=== PATIENT | male | born 1980 | race African-American/Black ===

== ENCOUNTER 2024-07-27 08:36 | Outpatient (CLI) | payer OTHER | END 2024-07-27 08:39 | disposition home or self-care (01) | LOC: SONOGRAMA 08:36 | DX: M25.512 Pain in left shoulder (principal) ==

== ENCOUNTER 2025-04-13 06:45 | Outpatient (CLI) | payer OTHER ==
[2025-04-13 07:56] LABS: URINE APPEARANCE Clear; URINE BILIRRUBIN Negative (NEGATIVE); URINE BLOOD Negative; URINE COLOR Yellow; URINE GLUCOSE Negative (NEGATIVE); URINE KETONE Trace (NEGATIVE); URINE LEUKOCYTE Negative; URINE NITRATE Negative; URINE PROTEIN Negative (NEGATIVE); URINE UROBILINOGEN 0.2 E.U./dl
[2025-04-13 07:57] LABS: URINE RBC 6.7 uL (0.0-20.8); URINE WBC 4.2 uL (0.0-23.2)
[2025-04-13 07:59] LABS: URINE BACTERIA 1.1 uL (0.0-1933); URINE CAST 0.00 uL (0.0-1.40); URINE EPITHELIAL CELLS 0.9 uL (0.0-38.8)
[2025-04-13 08:00] LABS: BASO % 0.7 % (0.1-1.2); EOS # 0.15 (0.04-0.54); EOS % 2.2 % (0.7-7.0); LYMPH # 2.41 (1.18-3.74); LYMPH % 35.8 % (19.3-53.1); MEAN PLATELET VOLUME 11.00 fl (9.4-12.4); MONO # 0.57 (0.24-0.82); MONO % 8.5 % (4.7-12.5); NEUT # 3.52 (1.56-6.13); NEUT % 52.4 % (34.0-71.1); RED CELL DISTRIBUTION WIDTH 13.4 % (11.6-14.4)
[2025-04-13 09:13] LABS: ALT/SGPT 42.0 U/L (12-78); AST/SGOT 18.0 U/L (15-37); BILIRUBIN TOTAL 0.55 mg/dL (0.3-1.2); BUN CREA RATIO 14.0 (7.0-25.0); CHOL HDL RATIO 3.9 (0-5.0); CREATININE SERUM 1.0 mg/dL (0.70-1.30); GFR 80.8; GLOBULINA 3.4 G/DL (2.4-3.5); GLUCOSE FASTING 88.0 mg/dL (65-100); HDL 47.0 mg/dl (40-60); LDL 117.0 mg/dl (0-130); OSMOLALITY SERUM 279.0 MOSM/KG (275-295); PROSTATIC SPECIFIC ANTIGEN 1.82 NG/ML (0.010-4.00); TSH 2.19 uIU/mL (0.358-3.74); VLDL 20.0 (0-39)
== END 2025-04-13 06:49 | disposition home or self-care (01) ==
LOC: LAB 06:45
DX: N40.0 Benign prostatic hyperplasia without lower urinary tract symptoms (principal); Z12.11 Encounter for screening for malignant neoplasm of colon; R79.9 Abnormal finding of blood chemistry, unspecified; R53.83 Other fatigue; Z79.899 Other long term (current) drug therapy

== ENCOUNTER → 2025-04-20 07:35 | Outpatient (CLI) | payer OTHER ==
[2025-04-20 08:27] LABS: ob NEGATIVE (NEGATIVE)
== END | disposition home or self-care (01) ==
LOC: LAB 07:35
PROVIDERS: ATTEND Internal Medicine
DX: N40.0 Benign prostatic hyperplasia without lower urinary tract symptoms (principal); Z12.11 Encounter for screening for malignant neoplasm of colon; R79.9 Abnormal finding of blood chemistry, unspecified; R53.83 Other fatigue; Z79.899 Other long term (current) drug therapy